=== PATIENT | female | born 1995 | race Caucasian/White ===

== ENCOUNTER 2017-11-23 13:20 | Emergency (ER) | payer SELFPAY ==
[2017-11-23 14:47] LABS: Hemoglobin 13.7 g/dL (12.0-16.0); Mean Corpuscular HGB CONC 33.7 g/dL (32.0-36.0); Mean Corpuscular Hemoglobin 29.8 pg (27.0-31.0); Mean Corpuscular Volume 88.6 fl (81.0-99.0); RBC Distribution Width 12.8 % (11.5-14.5); Red Blood Cell (RBC) Count 4.58 mill/uL (4.20-5.40); White Blood Cell (WBC) Count 8.4 thou/uL (4.8-10.8)
--- NOTE | 2017-11-23 14:57 | RAD ---
AP CHEST: History: Syncope. FINDINGS: The lungs are well aerated. No evidence for active intrathoracic disease seen. No evidence of effusio ns, pneumonia, or pneumothorax is seen. IMPRESSION: Unremarkable AP view chest. POS: [facility]
[2017-11-23 15:01] LABS: Anion Gap 11 mmol/L (10-20); BUN (Urea Nitrogen) 14 mg/dL (7.0-18.7); Calc. Creatinine Clearance 0 mL/min (70-130); Calcium 9.7 mg/dL (7.8-10.44); Carbon Dioxide 26 mmol/L (22-29); Chloride 106 mmol/L (98-107); Estimated GFR-MDRD Greater than 90; Glucose 93 mg/dL (70-105); Potassium 4.1 mmol/L (3.5-5.1); Sodium 139 mmol/L (136-145)
[2017-11-23 15:02] LABS: BHCG - Serum Negative (NEGATIVE); Pregs Control Background? CLEAR/WHITE (CLR/WHITE); Pregs Control Bar Appear? YES (CONTROL BAR)
[2017-11-23 15:15] LABS: #Basophils 0.1 thou/uL (0.0-0.2); #Eosinphils 0.2 thou/uL (0.0-0.7); #Lymphocytes 2.1 thou/uL (1.20-3.40); #Monocytes 0.6 thou/uL (0.11-0.59); #Neutrophils 5.5 thou/uL (1.40-6.50); %Basophils 0.6 % (0.0-1.0); %Eosinophils 2.1 % (0.0-10.0); %Lymphocytes 24.5 % (21.0-51.0); %Monocytes 7.4 % (0.0-10.0); %Neutrophils 65.4 % (42.0-75.0); Mean Platelet Volume 9.1 fL (7.4-10.4); PLT Morphology Comment Appears Decreased; Platelet Count 106 thou/uL (130-400)
--- NOTE | 2017-11-23 15:20 | CT ---
CT BRAIN WITHOUT CONTRAST: History: Syncope. FINDINGS: No evidence of acute infarct, hemorrhage, midline shift, or abnormal extraaxial fluid collections are seen. The ventricular size is normal and the basilar cisterns patent. The bony calvarium is intact. The visualized paranasal sinuses and mastoid air cells are well aerated. IMPRESSION: No CT evidence of acute intracranial process. POS: [facility]
== END 2017-11-23 16:22 | disposition home or self-care (01) ==
LOC: ERS 13:20 → EEVIPCON 13:20 → ERS 16:22
DX: S06.0X9A Concussion with loss of consciousness of unspecified duration, initial encounter (principal); W22.8XXA Striking against or struck by other objects, initial encounter
CPT/HCPCS: 36415; 70450; 71045; 80048; 84703; 85025; 93005

== ENCOUNTER 2017-11-25 11:20 | Inpatient (IN) | payer BC, SELFPAY ==
[2017-11-25 12:01] LABS: #Basophils 0.1 thou/uL (0.0-0.2); #Eosinphils 0.1 thou/uL (0.0-0.7); #Lymphocytes 2.1 thou/uL (1.20-3.40); #Monocytes 0.7 thou/uL (0.11-0.59); #Neutrophils 5.7 thou/uL (1.40-6.50); %Basophils 0.9 % (0.0-1.0); %Eosinophils 1.4 % (0.0-10.0); %Lymphocytes 24.1 % (21.0-51.0); %Neutrophils 65.6 % (42.0-75.0); Hemoglobin 14.5 g/dL (12.0-16.0); Mean Corpuscular Hemoglobin 30.3 pg (27.0-31.0); Mean Corpuscular Volume 89.1 fl (81.0-99.0); Platelet Count 130 thou/uL (130-400); RBC Distribution Width 12.8 % (11.5-14.5); White Blood Cell (WBC) Count 8.6 thou/uL (4.8-10.8)
[2017-11-25 12:10] LABS: BHCG - Serum Negative (NEGATIVE); Pregs Control Background? CLEAR/WHITE (CLR/WHITE); Pregs Control Bar Appear? YES (CONTROL BAR)
--- NOTE | 2017-11-25 12:19 | CT ---
CT OF THE BRAIN WITHOUT CONTRAST: INDICATION: History of fall with head injury 2 days ago. The patient was in [employer] and felt dizzy and slumped ov er and loss consciousness. The patient is confused ever since being passed out. COMPARISON: Prior exam dated 11/23/17. FINDINGS: No acute infarct, hemorrhage, or hydrocephalus is present. Septum pellucidum and third ventricle are midline. Motion artifact slightly limits image detail. The visualized aspects of the skull and ext racranial soft tissues appear within normal limits. IMPRESSION: No definite acute intracranial abnormality. POS: [facility]
[2017-11-25 12:27] LABS: ALT (SGPT) 18 U/L (8-55); AST (SGOT) 19 U/L (5-34); Albumin 4.3 g/dL (3.5-5.0); Alkaline Phosphatase 56 U/L (40-150); Anion Gap 12 mmol/L (10-20); BUN (Urea Nitrogen) 17 mg/dL (7.0-18.7); Bilirubin, Total 0.4 mg/dL (0.2-1.2); Calc. Creatinine Clearance 0 mL/min (70-130); Calcium 9.6 mg/dL (7.8-10.44); Carbon Dioxide 22 mmol/L (22-29); Chloride 108 mmol/L (98-107); Estimated GFR-MDRD Greater than 90; Globulin 3.5 g/dL (2.4-3.5); Glucose 92 mg/dL (70-105); Potassium 4.2 mmol/L (3.5-5.1); Protein, Total 7.8 g/dL (6.0-8.3); Sodium 138 mmol/L (136-145)
[2017-11-25 12:35] LABS: Thyroid Stimulating Hormone 1.2413 uIU/mL (0.35-4.94)
[2017-11-25 13:46] LABS: Amphetamine Not Detected (NotDetected); Barbiturates Screen Not Detected (NotDetected); Benzodiazepine Screen Not Detected (NotDetected); Cocaine Metabolite Screen Not Detected (NotDetected); Medtox Control Line Valid? VALID (VALID); Medtox Reader # READER 1; Methadone Not Detected (NotDetected); Methamphetamine Not Detected (NotDetected); Opiate Screen Not Detected (NotDetected); Oxycodone Screen Not Detected (NotDetected); Phencyclidine (PCP) Not Detected (NotDetected); THC/Cannabinoid Screen Not Detected (NotDetected); Tricyclic Screen Not Detected (NotDetected)
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
[2017-11-25] MEDS ORDERED: Lorazepam 1 MG TAB PO PRN (14:45)
[2017-11-25] MEDS ORDERED: cloNIDine 0.1 MG TAB PO PRN (14:45)
[2017-11-25] MEDS ORDERED: Calcium Carbonate 500 MG ChewTAB PO PRN (14:45)
[2017-11-25] MEDS ORDERED: Loratadine 10 MG TAB PO PRN (14:45)
[2017-11-25] MEDS ORDERED: Bisacodyl 5 MG TAB PO PRN ×2 (14:45)
[2017-11-25] MEDS ORDERED: Benzonatate 100 MG CAP PO PRN (14:45)
[2017-11-25] MEDS ORDERED: Ondansetron HCl/PF 4 MG/2 ML Vial IVP PRN (14:45)
[2017-11-25] MEDS ORDERED: Nitroglycerin 0.4 MG TAB (25 Tab Bottle) SL PRN (14:45)
[2017-11-25] MEDS ORDERED: Diabetic Tussin 200 MG/10 ML UDCUP PO PRN (14:45)
[2017-11-25] MEDS ORDERED: Mag-Al 1200 mg/1200 mg/30 ML UDCUP PO PRN (14:45)
[2017-11-25] MEDS ORDERED: Senokot 8.6 MG TAB PO PRN ×2 (14:45)
[2017-11-25] MEDS ORDERED: hydrALAZINE 20 MG/ML VIAL SLOW IVP PRN (14:45)
--- NOTE | 2017-11-25 15:32 | CON ---
DATE OF CONSULTATION: 11/25/2017 REFERRING PHYSICIAN: Dr. Manju Coronado. REASON FOR CONSULTATION: Syncope, rule out seizures. HISTORY OF PRESENT ILLNESS: Ms. Dia is a 22-year-old female, who has been consulted for e valuation of passing out spell. History is obtained from patient's brother who was present at [facility]. Apparently, the patient was at work at [employer] on last Sunday. At that time, she had dropped some change on the floor, for which she went down to pick it up. When she got up, she hit the back of he r head on to the table. Immediately after that episode, she was doing okay. She was able to carry o n her activities at work; however, few minutes later, she passed out. It is unknown whether she had any convulsions at that time, it is unknown whether how long she was passed out for, it is unknown wh ether she had any tongue biting or loss of bladder control with this episode. She was brought to the [facility]. She was noted to be confused for approximately 2-3 hours. At that time, she had a CT scan of the head done at outside hospital, which was normal. She was discharged to [facility] after this. Today, she was at [employer] and there she was noted by the other [employer] goers to be stari ng out in space and then she passed out. Again, it is unknown whether she had any convulsions or ton nina biting or loss of bladder control with this episode. She was brought to the [facility]. Here, she continues to be somewhat confused, but improving in her confusion as the time progr esses. She currently denies any headache, chest pain, palpitation, nausea, vomiting, abdominal pain, numbness, tingling or weakness. PAST MEDICAL HISTORY: Significant for PTSD. PAST SURGICAL HISTORY: None significant. SOCIAL HISTORY: She denies smoking, alcohol use, or illicit drug use. She is currently working at [employer]. CURRENT MEDICATIONS: None. ALLERGIES: No known drug allergies. FAMILY HISTORY: Noncontributory. REVIEW OF SYSTEMS: As mentioned in the HPI, otherwise negative. PHYSICAL EXAMINATION: VITAL SIGNS: Blood pressure of 119/79, pulse of 70, respirations of 18, O2 sats of 99% on room air, temperature of 98.3. GENERAL: Well-developed, well-nourished female, in no apparent distress. RESPIRATORY: Clear to auscultation bilaterally. CARDIOVASCULAR: Regular rate and rhythm. NEUROLOGICAL: Mental status: The patient is awake, alert, oriented x3. Speech and language: Fluen t speech. Cranial nerves: Pupils are 3 mm and reactive. Visual pringle are intact. External muscle s are intact. No nystagmus is noted. Face is symmetric. Tongue and uvula midline. Motor exam show ed normal tone and bulk with a 5/5 strength in both lower extremities. Sensory: Sensation is intact and symmetric. Deep tendon reflexes 2+ in both upper and lower extremities. Babinski: Plantar res ponses flexion bilaterally. Coordination intact to [id number] and finger tapping bilaterally . LABORATORY DATA: Reviewed, which included CBC, CMP, urine drug screen, which are essentially normal. IMAGING STUDIES: CT head without contrast was reviewed which showed no acute intracranial abnormalit y. IMPRESSION: Syncope. ASSESSMENT AND PLAN: Ms. Dia is a pleasant 22-year-old female, who presented with the epi sode of passing out and this is her second event of passing out. Based on the description, this coul d be vasovagal versus complex partial seizure. At this time, I recommend starting her on Keppra 500 mg b.i.d. as a preventive measure. I will recommend obtaining MRI brain with and without contrast an d EEG for further evaluation. Continue supportive care. I have discussed with the patient about sei zure precautions including no driving. She will follow up in my clinic in 4-6 weeks post-discharge. Thank you for consultation.
[2017-11-25] MEDS: Acetaminophen 325 MG TAB PO PRN (16:00)
[2017-11-25] MEDS: Sodium Chloride 0.9% 1,000 ML IV SCH ×2 (16:00→17:14)
[2017-11-25 16:34] LABS: Bilirubin Negative (Negative); Blood, Urine Trace (Negative); Clarity CLEAR (Clear); Glucose, Urine (Dipstick) Negative (Negative); Leukocyte Small (Negative); Nitrite Negative (Negative); Protein, Urine (Dipstick) Negative (Neg-Trace); Specific Gravity, Urine 1.024 (1.002-1.036); Urobilinogen 0.2 mg/dL (0.2-1.0); pH, Urine 5.5 (5.0-9.0)
[2017-11-25 16:35] LABS: Bacteria/HPF None Seen HPF (None Seen); Hyaline Casts/LPF 0-3 HYALINE CAST LPF (0-3 Hyaline); Pathc Cast-AUWi Flag 0.43 (0-2.49); RBC/HPF 0-3 HPF (0-3)
--- NOTE | 2017-11-25 16:56 | ULT ---
CAROTID DOPPLER ULTRASOUND: History: Multiple longitudinal and transverse images of the carotid arteries obtained using a multihe rtz linear array transducer. Real-time, color flow, and spectral waveform doppler analysis demonstrat es no evidence of acute or old clot seen in the right or left common carotid, internal carotid, or ex ternal carotid arteries. Antegrade flow is seen in both vertebral arteries. No evidence of flow limiting lesions seen. IMPRESSION: Normal bilateral carotid doppler ultrasound evaluation without evidence of significant carotid diseas e. POS: [facility]
[2017-11-25] MEDS: levETIRAcetam 500 MG TAB PO SCH (20:34)
[2017-11-26 05:17] LABS: #Basophils 0.1 thou/uL (0.0-0.2); #Eosinphils 0.2 thou/uL (0.0-0.7); #Lymphocytes 2.3 thou/uL (1.20-3.40); #Monocytes 0.7 thou/uL (0.11-0.59); #Neutrophils 4.7 thou/uL (1.40-6.50); %Basophils 0.6 % (0.0-1.0); %Eosinophils 2.8 % (0.0-10.0); %Monocytes 8.9 % (0.0-10.0); %Neutrophils 58.6 % (42.0-75.0); Hemoglobin 13.6 g/dL (12.0-16.0); Mean Corpuscular HGB CONC 33.6 g/dL (32.0-36.0); Mean Corpuscular Hemoglobin 30.1 pg (27.0-31.0); Mean Corpuscular Volume 89.6 fl (81.0-99.0); Mean Platelet Volume 9.4 fL (7.4-10.4); Platelet Count 144 thou/uL (130-400); RBC Distribution Width 13.1 % (11.5-14.5); Red Blood Cell (RBC) Count 4.52 mill/uL (4.20-5.40)
[2017-11-26 05:36] LABS: Anion Gap 10 mmol/L (10-20); BUN (Urea Nitrogen) 15 mg/dL (7.0-18.7); Calc. Creatinine Clearance 0 mL/min (70-130); Calcium 9.3 mg/dL (7.8-10.44); Carbon Dioxide 24 mmol/L (22-29); Chloride 107 mmol/L (98-107); Estimated GFR-MDRD Greater than 90; Glucose 110 mg/dL (70-105); Potassium 3.9 mmol/L (3.5-5.1); Sodium 137 mmol/L (136-145)
[2017-11-26] MEDS: Sodium Chloride 0.9% 1,000 ML IV SCH (06:12)
[2017-11-26] MEDS: levETIRAcetam 500 MG TAB PO SCH ×2 (09:03→22:14)
[2017-11-26] MEDS: Enoxaparin Sodium 40 MG/0.4 ML SYRINGE SC SCH (09:04)
--- NOTE | 2017-11-26 10:30 | MRI ---
MRI BRAIN WITH AND WITHOUT IV CONTRAST: DATE: 11/26/17. HISTORY: Fall with head injury 3 days ago. Syncope. The patient felt dizzy and slumped over and lost conscio usness. Since this time, the patient has been confused. FINDINGS: There are increased FLAIR and T2 weighted signal abnormalities seen within the periventricular white matter, some of which are punctate in size with linear signal abnormalities as well as more rounded s ignal abnormalities present. Given patient's young age and MRI appearance, findings are suggestive o f a demyelinating process such as multiple sclerosis. There is no abnormal enhancement in the region s of signal abnormalities to suggest an active demyelinating plaque. There is no evidence of an acute infarction. Septum pellucidum and third ventricle are in the midlin e. Ventricular system is normal in size, shape, and position. Appropriate flow voids are demonstrated at the base of the brain. The right vertebral artery is smal l in caliber and likely terminates in PICA, which is a normal variant. Small mucous retention cysts are seen in each maxillary antrum. Orbits and the remainder of the skul l base have a normal MRI appearance. IMPRESSION: Findings most suggestive of a demyelinating process such as multiple sclerosis. However, neurologica l consultation and lumbar puncture are suggested for confirmation. POS: [facility]
[2017-11-26] MEDS ORDERED: Lorazepam 1 MG TAB PO PRN (12:32)
--- NOTE | 2017-11-26 12:35 | PDOC.PN ---
- Subjective Encounter Start Date: 11/26/17 Encounter Start Time: 12:32 Subjective: reports feeling OK. denies any new complaints -: no muscle weakness,some dizziness but no passing out spells -: no CP/palpitations - Objective MAR Reviewed: Yes Vital Signs & Weight: Vital Signs (12 hours) Temp Pulse Resp BP Pulse Ox 11/26/17 11:56 97.7 F 74 16 116/68 96 11/26/17 08:00 97.5 F L 60 16 11/26/17 07:30 97.5 F L 60 16 110/64 96 11/26/17 03:00 98.9 F 51 L 16 102/50 L 99 Weight Weight 7.683 oz I&O: 11/25/17 11/26/17 11/27/17 06:59 06:59 06:59 Intake Total 550 480 Balance 550 480 Result Diagrams: 11/26/17 05:02 11/26/17 05:02 Radiology Reviewed by me: Yes (MRI-? demyelinating disease of brain) Phys Exam - Physical Examination Constitutional: NAD HEENT: PERRLA, moist MMs, sclera anicteric, oral pharynx no lesions Neck: no nodes, no JVD, supple, full ROM Respiratory: no wheezing, no rales, no rhonchi, clear to auscultation bilateral Cardiovascular: RRR, no significant murmur, no rub, gallop Gastrointestinal: soft, non-tender, no distention, positive bowel sounds Musculoskeletal: no edema, pulses present Neurological: non-focal, normal sensation, moves all 4 limbs Psychiatric: normal affect, A&O x 3 Skin: no rash Dx/Plan (1) Syncope and collapse Code(s): R55 - SYNCOPE AND COLLAPSE Status: Acute (2) Demyelinating disease of central nervous system, unspecified Code(s): G37.9 - DEMYELINATING DISEASE OF CENTRAL NERVOUS SYSTEM, UNSPECIFIED Status: Acute - Plan DVT proph w/SCDs discussed MRI findings w Dr. Engel.will check LP-r/o MS -: will get MRI spine and start empiric steroids. -: cont keppra bid empiricaly -: ECHO,EEG pending * . Review of Systems - Review of Systems Constitutional: weakness. negative: fever, chills, sweats, malaise, other Eyes: negative: Pain, Vision Change, Conjunctivae Inflammation, Eyelid Inflammation, Redness, Other ENT: negative: Ear Pain, Ear Discharge, Nose Pain, Nose Discharge, Nose Congestion, Mouth Pain, Mouth Swelling, Throat Pain, Throat Swelling, Other Respiratory: negative: Cough, Dry, Shortness of Breath, Hemoptysis, SOB with Excertion, Pleuritic Pain, Sputum, Wheezing Cardiovascular: light headedness. negative: chest pain, palpitations, orthopnea , paroxysmal nocturnal dyspnea, edema, other Gastrointestinal: negative: Nausea, Vomiting, Abdominal Pain, Diarrhea, Constipation, Melena, Hematochezia, Other Genitourinary: negative: Dysuria, Frequency, Incontinence, Hematuria, Retention , Other Musculoskeletal: negative: Neck Pain, Shoulder Pain, Arm Pain, Back Pain, Hand Pain, Leg Pain, Foot Pain, Other Skin: negative: Rash, Lesions, Todd, Bruising, Other Neurological: negative: Weakness, Numbness, Incoordination, Change in Speech, Confusion, Seizures, Other - Medications/Allergies Allergies/Adverse Reactions: Allergies Allergy/AdvReac Type Severity Reaction Status Date / Time No Known Drug Allergies Allergy Verified 11/25/17 14:49 Medications: Current Medications Acetaminophen (Tylenol) 650 mg PO Q4H PRN PRN Reason: Headache/Fever or Pain Last Admin: 11/25/17 16:00 Dose: 650 mg Al Hydroxide/Mg Hydroxide (Maalox) 30 ml PO Q6H PRN PRN Reason: Heartburn or Indigestion Benzonatate (Tessalon) 100 mg PO Q4H PRN PRN Reason: Cough Bisacodyl (Dulcolax) 10 mg PO DAILYPRN PRN PRN Reason: Constipation Calcium Carbonate (Tums) 1,000 mg PO Q4H PRN PRN Reason: Heartburn or Indigestion Clonidine (Catapres) 0.1 mg PO Q4H PRN PRN Reason: Systolic BP > 160 Enoxaparin Sodium (Lovenox) 40 mg SC 0900 [facility] Last Admin: 11/26/17 09:04 Dose: 40 mg Guaifenesin (Robitussin Sf) 200 mg PO Q4H PRN PRN Reason: Cough Hydralazine HCl (Apresoline) 10 mg SLOW IVP Q4H PRN PRN Reason: Systolic BP > 170 Levetiracetam (Keppra) 500 mg PO BID [facility] Last Admin: 11/26/17 09:03 Dose: 500 mg Loratadine (Claritin) 10 mg PO DAILYPRN PRN PRN Reason: Sinus Symptoms Lorazepam (Ativan) 1 mg PO Q4H PRN PRN Reason: Anxiety/Agitation Lorazepam (Ativan) 2 mg PO ONE PRN PRN Reason: Anxiety Nitroglycerin (Nitrostat) 0.4 mg SL Q5MIN PRN PRN Reason: Chest Pain Ondansetron HCl (Zofran) 4 mg IVP Q6H PRN PRN Reason: Nausea/Vomiting Senna (Senokot) 2 tab PO HSPRN PRN PRN Reason: Constipation Senna (Senokot) 2 tab PO HSPRN PRN PRN Reason: Constipation Tramadol HCl (Ultram) 50 mg PO Q4H PRN PRN Reason: Moderate Pain (4-6)
[2017-11-26] MEDS ORDERED: Lidocaine-Prilocaine 2.5% Cream 5 GM TUBE TOP PRN (12:51)
[2017-11-26 15:37] LABS: Color Of CSF Supernatant COLORLESS (Colorless); Tube # 2; Unspun CSF Color COLORLESS (Colorless)
--- NOTE | 2017-11-26 15:41 | RAD ---
LUMBAR PUNCTURE: History: Demyelinating disease. FINDINGS: After informed consent was obtained the patient was prepped and draped in the normal sterile fashion. A 22 gauge spinal needle was inserted at the L4-5 level and approximately 7 cc of clear CSF fluid we re obtained for routine studies. The patient tolerated the procedure well. There were no immediate co mplications. IMPRESSION: Successful lumbar puncture. POS: [facility]
[2017-11-26 15:46] LABS: CSF Source CSF; Clarity Clear (Clear); RBC Count - Manual 10 /cumm (None Seen); Tube # 3; WBC/NonHematics Count - Manual 2 /cumm (0-5)
[2017-11-26 15:50] LABS: CSF, Glucose 60 mg/dl (40-70); CSF, Protein 31 mg/dL (15-40)
--- NOTE | 2017-11-26 18:24 | PDOC.EVN ---
Event Note - Event Note Event Note: Care discussed with brother .results of MRI discussed. All Qs answered. He reported that their father also had MS.
--- NOTE | 2017-11-26 18:57 | PRG ---
DATE OF SERVICE: 11/26/2017 SUBJECTIVE: Ms. Dia presented with the episode of passing out and questionable seizure type activit y. She had MRI brain done today, which showed multiple T2 flair hyperintense lesions indicative of a demyelinating disease. She also had an EEG done, which was essentially normal. She has not had any episode of passing out or seizure-type activity over the past 24 hours. She is groggy after receivi ng [facility] and MRI. OBJECTIVE: VITAL SIGNS: Blood pressure 102/54, pulse of 61, temperature 98.6, respirations 16, O2 sats 98% on r oom air. GENERAL: Well-developed, well-nourished female, in no apparent distress. RESPIRATORY: Clear to auscultation bilaterally. CARDIOVASCULAR: Regular rate and rhythm. NEUROLOGIC: Essentially unchanged. She is somewhat groggy from receiving sedating medication for he r to undergo procedures. IMAGING STUDIES: MRI brain with and without contrast was reviewed, which showed multiple T2 flair hy perintense lesions suggestive of a demyelinating disease. LABORATORY DATA: Labs are reviewed, which included TSH which was normal. IMPRESSION: 1. Syncope, could be complex partial seizure. 2. Demyelinating disease of the brain. ASSESSMENT AND PLAN: Ms. Dia is a pleasant 22-year-old female, who presented with the pas sing out spell with a questionable seizure type activity. Her MRI brain does show multiple demyelina ting plaques. All of them are nonenhancing. This would suggest that she most likely has multiple sc lerosis. At this time, I would recommend obtaining MRI, C-spine, and T-spine with and without contra st. I have also recommended to obtain a lumbar puncture today for which CSF, WBC, glucose and protei n are normal. I have started the patient on IV Solu-Medrol 250 mg q.6 hours, total of 12 doses. She will continue on Keppra 500 mg twice daily. I have discussed with the brother who was present at [facility] and explained to him that she may have multiple sclerosis. He mentioned the patient's father h as history of MS. At this time, I have advised them that she cannot drive for 3 months. I have advi sed them that she needs to continue with the Keppra for at least 1 year. We will follow up the resul ts of MRI, C-spine, and T-spine. She will follow up in my clinic post-discharge in 2-4 weeks. She w ill need a Medrol Dosepak upon discharge. When she completes IV steroids and she remains stable and back to baseline, she is okay to be discharged to home from my standpoint. No further neurological w orkup needed from my standpoint.
[2017-11-26] MEDS: Acetaminophen 325 MG TAB PO PRN (19:15)
[2017-11-27 01:54] VITALS: BMI 29.5
[2017-11-27] MEDS: Acetaminophen 325 MG TAB PO PRN ×5 (04:13→21:51)
[2017-11-27] MEDS: levETIRAcetam 500 MG TAB PO SCH ×2 (09:01→21:12)
[2017-11-27] MEDS: Enoxaparin Sodium 40 MG/0.4 ML SYRINGE SC SCH (09:01)
--- NOTE | 2017-11-27 09:33 | PDOC.PN ---
- Subjective Encounter Start Date: 11/27/17 Encounter Start Time: 09:31 Subjective: apathetic affect - Objective MAR Reviewed: Yes Vital Signs & Weight: Vital Signs (12 hours) Temp Pulse Resp BP Pulse Ox 11/27/17 07:40 98.3 F 65 19 94/44 L 97 11/27/17 07:24 98.3 F 88 18 11/27/17 05:12 95 11/27/17 04:00 98.3 F 88 18 113/64 93 L 11/27/17 00:00 98.6 F 83 18 110/62 99 11/26/17 22:14 98.6 F 83 18 118/74 98 Weight Weight 217 lb 12.8 oz I&O: 11/26/17 11/27/17 11/28/17 06:59 06:59 06:59 Intake Total 550 650 480 Balance 550 650 480 Result Diagrams: 11/26/17 05:02 11/26/17 05:02 Phys Exam - Physical Examination Neck: no JVD Respiratory: clear to auscultation bilateral Cardiovascular: RRR, no significant murmur Gastrointestinal: soft, non-tender, positive bowel sounds Musculoskeletal: no edema CN 2-12 intact, moves all extremities, strength symetric Dx/Plan (1) Apathetic Code(s): R45.3 - DEMORALIZATION AND APATHY Status: Acute (2) Demyelinating disease of central nervous system, unspecified Code(s): G37.9 - DEMYELINATING DISEASE OF CENTRAL NERVOUS SYSTEM, UNSPECIFIED Status: Acute (3) Syncope and collapse Code(s): R55 - SYNCOPE AND COLLAPSE Status: Acute (4) Seizure Code(s): R56.9 - UNSPECIFIED CONVULSIONS Status: Acute - Plan on anti seizure meds -: MRI suggests MS -: awaiting C/T spine MRI -: discuss with neuro * .
[2017-11-27 12:37] LABS: Ref Lab Test Ordered ACE CSF
[2017-11-27 12:38] LABS: Ref Lab Test Ordered NMO CSF
[2017-11-27] MEDS ORDERED: Ondansetron ODT 4 MG TAB PO PRN (13:44)
[2017-11-27] MEDS ORDERED: Promethazine HCl 25 MG/ML VIAL SLOW IVP PRN (13:44)
--- NOTE | 2017-11-27 16:11 | MRI ---
CERVICAL SPINE MRI WITH AND WITHOUT CONTRAST: Date: 11/27/17 CLINICAL HISTORY: Demyelinating disease, 22-year-old female with history of fall and head injury 3 days prior. No prior imaging comparison available. FINDINGS: No expansile lesion of the cervical spinal cord identified. No obvious intrinsic intramedullary signa l abnormality or pathologic intramedullary enhancement is seen. No significant extrinsic mass effect upon the cervical spinal cord. Disc space heights are preserved. Spinal alignment is maintained. No c ompression deformity or acute marrow edema. No significant paraspinous soft tissue signal abnormality evident. IMPRESSION: No discrete cord lesion or pathologic intramedullary enhancement evident. POS: [facility]
--- NOTE | 2017-11-27 16:12 | MRI ---
THORACIC SPINE MRI WITH AND WITHOUT CONTRAST: 11/27/17 CLINICAL HISTORY: Demyelinating disease, 22-year-old female with history of recent fall, head injury three days prior. No prior imaging comparison available. FINDINGS: There is no evidence of an expansile cord lesion evident. No obvious intrinsic intramedullary signal abnormality identified. No pathologic intramedullary enhancement is seen. Incidental note of inteross eous hemangioma of T9, as evidence by circumscribed, rounded T1 hyperintensity. There is a mild disc bulge of T9-10 with mild ventral CSF effacement and slight cord flattening. Otherwise, no extrinsic mass effect upon the thoracic spinal cord. No compression deformity, significant evidence for acute m arrow edema or malalignment. IMPRESSION: There is no evidence of demyelinating lesion of the thoracic spinal cord identified. POS: [facility]
--- NOTE | 2017-11-28 07:24 | PDOC.PN ---
- Subjective Encounter Start Date: 11/28/17 Encounter Start Time: 07:23 Subjective: apathetic affect, [place], uncooperative with physical exam - Objective MAR Reviewed: Yes Vital Signs & Weight: Vital Signs (12 hours) Temp Pulse Resp BP Pulse Ox 11/28/17 03:38 98.4 F 75 16 99/53 L 95 11/28/17 01:49 95 11/27/17 23:22 98.7 F 84 18 115/65 94 L 11/27/17 21:12 97.4 F L 74 16 97 Weight Admit Weight 217 lb 12.8 oz Weight 217 lb 12.8 oz I&O: 11/27/17 11/28/17 11/29/17 06:59 06:59 06:59 Intake Total 650 Balance 650 Result Diagrams: 11/26/17 05:02 11/26/17 05:02 Phys Exam - Physical Examination Neck: no JVD Respiratory: clear to auscultation bilateral Cardiovascular: RRR, no significant murmur Gastrointestinal: soft, positive bowel sounds Musculoskeletal: no edema Neurological: non-focal poor cooperation Dx/Plan (1) Apathetic Code(s): R45.3 - DEMORALIZATION AND APATHY Status: Acute (2) Demyelinating disease of central nervous system, unspecified Code(s): G37.9 - DEMYELINATING DISEASE OF CENTRAL NERVOUS SYSTEM, UNSPECIFIED Status: Acute (3) Syncope and collapse Code(s): R55 - SYNCOPE AND COLLAPSE Status: Acute (4) Seizure Code(s): R56.9 - UNSPECIFIED CONVULSIONS Status: Acute - Plan cont seizure meds -: cont iv medrol -: needs psych eval as outpt * .
[2017-11-28] MEDS: Enoxaparin Sodium 40 MG/0.4 ML SYRINGE SC SCH (09:04)
[2017-11-28] MEDS: levETIRAcetam 500 MG TAB PO SCH ×2 (09:05→19:42)
[2017-11-28] MEDS: Acetaminophen 325 MG TAB PO PRN ×2 (09:05→18:51)
[2017-11-29] MEDS: Acetaminophen 325 MG TAB PO PRN ×2 (05:11→08:52)
--- NOTE | 2017-11-29 08:39 | PDOC.PN ---
- Subjective Encounter Start Date: 11/29/17 Encounter Start Time: 08:38 Subjective: no change in apathetic affect - Objective MAR Reviewed: Yes Vital Signs & Weight: Vital Signs (12 hours) Temp Pulse Resp BP Pulse Ox 11/29/17 08:00 99.0 F 62 18 106/58 L 98 11/29/17 00:00 59 L 16 116/57 L Weight Admit Weight 217 lb 12.8 oz Weight 217 lb 12.8 oz I&O: 11/28/17 11/29/17 11/30/17 06:59 06:59 06:59 Intake Total 1400 Output Total 1220 Balance 180 Result Diagrams: 11/26/17 05:02 11/26/17 05:02 Phys Exam - Physical Examination Neck: no JVD Respiratory: clear to auscultation bilateral Cardiovascular: RRR, no significant murmur Gastrointestinal: soft, non-tender, positive bowel sounds Musculoskeletal: no edema Neurological: non-focal Dx/Plan (1) Apathetic Code(s): R45.3 - DEMORALIZATION AND APATHY Status: Acute (2) Demyelinating disease of central nervous system, unspecified Code(s): G37.9 - DEMYELINATING DISEASE OF CENTRAL NERVOUS SYSTEM, UNSPECIFIED Status: Acute (3) Syncope and collapse Code(s): R55 - SYNCOPE AND COLLAPSE Status: Acute (4) Seizure Code(s): R56.9 - UNSPECIFIED CONVULSIONS Status: Acute - Plan cont antiseizure med, steroids -: have asked patient to have family come for discussion * .
[2017-11-29] MEDS: levETIRAcetam 500 MG TAB PO SCH (08:52)
[2017-11-29] MEDS: Enoxaparin Sodium 40 MG/0.4 ML SYRINGE SC SCH (08:52)
[2017-11-29] MEDS: traMADol HCl 50 MG TAB PO PRN ×2 (13:57→18:53)
--- NOTE | 2017-11-29 16:37 | PDOC.EVN ---
Event Note - Event Note Event Note: asked Dr Daniela Engel about FU re apathetic affect. related to meds? He suggests change antiseizure drug to vimpat . JOSELITO in his clinic.
[2017-11-29] MEDS: Lacosamide 50 mg Tablet PO SCH (22:19)
[2017-11-30] MEDS: Lacosamide 50 mg Tablet PO SCH (10:12)
[2017-11-30] MEDS: Enoxaparin Sodium 40 MG/0.4 ML SYRINGE SC SCH (10:12)
--- NOTE | 2017-11-30 11:20 | DIS ---
DATE OF ADMISSION: 11/25/2017 DATE OF DISCHARGE: 11/30/2017 PRIMARY CARE PROVIDER: [facility]. DISCHARGE DISPOSITION: Discharged home. FINAL DIAGNOSES: Conversion history or reaction, syncope and collapse, demyelinating disease of central nervous system, question of seizure, apathetic behavior. DISCHARGE MEDICATIONS: keppra 500 mg bid, Medrol Dosepak start today as directed. ALLERGIES: No known drug allergies. PENDING AT THE TIME OF DISCHARGE: Nothing. CODE STATUS: FULL. HOSPITAL COURSE: The patient was brought to [facility] after having a spell of syncope, rule out seizures. The patient was slow to respond, appeared confused, and was referred to the [facility]. Patient was seen in consultation by Dr. Subha Engel, Neurology. She was placed on Keppra by Dr. Engel. Recommended MRI, EEG. Carotid Doppler is normal. Brain MRI suggestive of demyelinating process such as multiple myeloma. Lumbar puncture was done. Fluid was clear, colorless, 2 white cells, 10 red cells, normal protein, normal glucose. Follow up by Dr. Engel. Recommended MRI C- spine and T-spine, which were done, which were unremarkable. Patient was given Solu-Medrol 250 x12 doses. She had other pertinent laboratory, CBC unremarkable x2, comp metabolic profile unremarkable, repeat unremarkable. Calcium 9.6 and 9.3. Drug screen negative. The patient had an apathetic attitude during the time of taking care of her. She was not able to assist with PT. Her neurological testing was extremely variable. Yesterday, I talked to Dr. Engel about changing her seizure prophylaxis medicines, because of her apathy. He suggested Vimpat while talking with her and her brother yesterday. She said she was trying to move her toes, but could not. After several days of caring for I became convinced that her major problem is psychiatric either a conversion reaction or other. Brother's sick relates to multiple stresses in her life including moving to [place] from [place], splitting with her , moving here to be with her brother. Today, when I saw her, she said she can now feel her toes. I did a thorough neurologic exam. Her strength is normal. Coordination is normal. Deep tendon reflexes are normal. Cranial nerves II-XII are intact. I have convinced that her situation has been either hysterical conversion reaction or an appropriate psychiatric behavior. She is being discharged on Vimpat 50 mg twice a day 1-month supply and a Medrol Dosepak as suggested by Dr. Engel, to follow up with Dr. Engel. I have discussed this case at length with her and with her brother that it is very difficult. I really suspect that there is minimal organic basis for her problems and it is indeed mostly functional. She has been instructed not to drive for 3 months and to follow up with Dr. Engel. No procedures were done. She needs to find a PCP. This has been relayed to her.after DC , patient complained about cost of vimpat, at her request Rx was changed to keppra 500mg bid. MTDD
[2017-11-30 16:25] VITALS: BP 98/77; TEMP 97.9
[2017-11-30] MEDS: Acetaminophen 325 MG TAB PO PRN (17:15)
[2017-12-04 12:16] LABS: VDRL, CSF Non Reactive (Non Rea:<1:1)
[2017-12-05 14:30] LABS: CSF IgG Index 1.4 (0.0-0.7); CSF IgG Synthesis Rate 16.2 mg/day (-9.9 TO +3.3); IgG Serum 1261 mg/dL (700-1600); IgG/Alb CSF 0.41 (0.00-0.25)
== END 2017-11-30 18:29 | disposition home or self-care (01) | DRG 880 ==
LOC: ERS 11:20 → 2SE 12:59 → OBSVTOIN 12:59
PROVIDERS: ADMIT Internal Medicine; ATTEND Internal Medicine
PROC: 009U3ZX Drainage of Spinal Canal, Percutaneous Approach, Diagnostic (ICD-10-PCS; principal; 2017-11-26)
DX: F44.5 Conversion disorder with seizures or convulsions (principal); G37.9 Demyelinating disease of central nervous system, unspecified; R55 Syncope and collapse; F99 Mental disorder, not otherwise specified; R45.3 Demoralization and apathy; Z91.81 History of falling; F43.10 Post-traumatic stress disorder, unspecified
CPT/HCPCS: 36415; 62270; 70450; 70553; 72156; 72157; 80048; 80053; 80306; 81001; 82040; 82042; 82784; 82945; 83605; 83916; 84146; 84157; 84443; 84703; 85025; 86592; 89051; 93005; 93306; 93880; 95816; 95819; G8978-GP-CK; G8979-GP-CH; G8987-GO-CJ; G8988-GO-CI; J1650; J2930; J7050